=== PATIENT | female | born 1995 | race Caucasian/White ===

== ENCOUNTER 2016-11-14 12:42 | Inpatient (IN) | payer BC, OTHER ==
[~2016-11-14] VITALS: Ht 157.5 cm; Wt 47.6 kg
--- NOTE | 2016-11-15 02:00 | NUR ---
INTAKE NOTE: Patient assessed in intake office at 0200 on 11/11/2016. Patient is ambulatory with steady gate, stable, alert and oriented x4, speech is clear and soft. Patient states that she is here to safety detox from Methamphetamine and Heroin. Patient states that his last use was: Heroin : "smoked 1 gram at 0130 on 11/15/2016". Methamphetamine: "via IV 0.5 gram on 11/15/2016". Patient reports NKA. COWS 5, CIWA 4. Patient presented with anxiety, agitation, nervousness, restlessness, and fatigue. Patient denies SI/HI. Patient denies Seizures Hx. VS: T: 98'4; BP: 115/62; HR: 88; RR: 18; O2 SAT: 98%, pain level:"0/10". Patient instructed on unit protocol of vitals Q4H and COWS/CIWA assessments. Patient verbalized understanding and agreement. Patient also instructed on policy regarding destruction of any controlled substances/prescriptions brought to facility, and handling of all medications. Patient verbalized understanding and agreement. Will complete admission assessment when patient is brought up to unit. Addendum: 11/15/16 at 0507 by BE FRASER RN COWS Dilip
[2016-11-15 02:30] VITALS: BP 115/62
--- NOTE | 2016-11-15 02:30 | NUR ---
ADMISSION NOTE: New admission is a 21 year old female admitted to [facility] at 0235 on 11/15/2016. Patient states that she is here, in the [facility] "first time for Safety Detox from Methamphetamine and Heroin". Pre-assessment completed in intake. No UDS Test provided. VS completed upon admission: T: 98'4; BP: 115/62; HR: 88; RR: 18; O2 SAT: 87%. Pain level "0/10". Patient reports NKA. Patient placed on Full Code, Regular Diet, Fall and Seizures Precautions. Patients denies Seizures Hx r/t withdrawal from substances. COWS 5, CIWA 4. Patient presented with anxiety, agitation, nervousness, restlessness, insomnia and fatigue. Patient denies SI/HI. Patient denies SI/HI. Height: 5'2 in, and weight by standing scale: 105 lbs. Respirations are even and unlabored. Patient denies SOB and chest pain. Patient has PCP, but unable recall PCP name. Patient admitted under the care of Herman Prince MD. Patient reports the following substances use: Heroin smoke: Patient reports "first time used in 2010.1.5 grams every day last five months. Last use was 1 gram on 11/15/16 at 0130". Methamphetamine IV: Patient reports taking ""first time used in 2011. 0.5 grams every day last five months. Last use was 0.5 gram at 0130 on 11/15/16". Patient reports relapsing four months ago, and has been using at this rate for our months". Patient reports smoking 10 cigarettes daily since"2005". Written smoking cessation education provided. Patient Verbalizes understanding. Patient did not brought home medications. Patient reports she used with prescriptions Gabapentin, and Seroquel. Patient reports last used home medications "11/14/2016 at 2300". Patient reports treatment history: "[facility]", [facility], 5 months ago". Patient report being sober for 9 months since 2015 to 2016". Patient reports Past Medical History: Anxiety, Depression, Substance Abuse, Tobacco dependence. Patient is ambulatory with steady gate, stable, AOx4, speech is soft and clear. Respirations unlabored and even. Lungs Sounds are clear bilaterally. Bowel Sounds active in all x4 quadrants. Last Bowel Movement was "11/14/16 ". Skin is intact, warm and dry to touch. UDS test not provided. Encouraged fluids as tolerated. Patient oriented to floor and room, explained how to use call light. Patient verbalized understanding. Safety measures on place. Call light within reach, bed in lowest position and locked, padded rails up bilaterally rails up bilaterally. Will continue to monitor closely. Addendum: 11/15/16 at 0507 by BE FRASER RN COWS 5. Addendum: 11/15/16 at 0644 by BE FRASER RN Patient did not brought home medications. Patient reports she used with prescriptions "Gabapentin 300 mg 1 cap PO TID". Last used home medications "11/14/2016 at 2300". "Seroquel 200 mg PO once a day HS". Addendum: 11/15/16 at 0646 by BE FRASER RN Patient unable to provide urine sample for UDS and Tests.
[2016-11-15] MEDS ORDERED: ACETAMINOPHEN 325 MG TABLET PO PRN (03:30)
[2016-11-15] MEDS ORDERED: MIRALAX 17 GM POWD.PACK PO PRN (03:30)
[2016-11-15] MEDS ORDERED: MAGNESIUM HYDROXIDE 30 ML LIQUID UDC PO PRN (03:30)
[2016-11-15] MEDS ORDERED: diphenhydrAMINE 50 MG CAPSULE PO PRN (03:30)
[2016-11-15] MEDS ORDERED: METHOCARBAMOL 750 MG TABLET PO PRN (03:30)
[2016-11-15] MEDS ORDERED: MAG HYDROX/AL HYDROX/SIMETH 30 ML LIQUID UDC PO PRN (03:30)
[2016-11-15] MEDS ORDERED: ONDANSETRON 4 MG/2 ML VIAL IM PRN (03:30)
[2016-11-15] MEDS ORDERED: LOPERAMIDE HCL 2 MG CAPSULE PO PRN ×2 (03:30)
[2016-11-15] MEDS ORDERED: DICYCLOMINE HCL 20 MG TABLET PO PRN (03:30)
[2016-11-15] MEDS ORDERED: IBUPROFEN 400 MG TABLET PO PRN (03:30)
[2016-11-15] MEDS ORDERED: ONDANSETRON ODT 4 MG TAB.RAPDIS SL PRN (03:30)
[2016-11-15] MEDS ORDERED: BUPRENORPHINE HCL 2 MG TAB.SUBL SL PRN (03:30)
[2016-11-15] MEDS ORDERED: QUET200T PO (03:50)
[2016-11-15] MEDS ORDERED: GABA-534 PO (03:50)
[2016-11-15 04:00] VITALS: BP 106/61
--- NOTE | 2016-11-15 07:02 | NUR ---
END OF SHIFT NOTE: Patient endorsed to day shift nurse in stable condition. Report given. Patient is a 21 year old female admitted to [facility] under the care of Herman Prince MD. at 0235 on 11/15/2016. Patient states that she is here, in the [facility] "first time for Safety Detox from Methamphetamine and Heroin". Patient reports NKA. Patient placed on Full Code, is on Regular Diet, is on Fall and Seizures Precautions. Patients denies Seizures Hx r/t withdrawal from substances. Past Medical History: Anxiety, Depression, Substance Abuse, Tobacco dependence. Patient reports the following substances use: Heroin smoke: Patient reports "first time used in 2010. Last five months - 1.5 grams every day. Last used 1 gram on 11/15/16 at 0130". Methamphetamine IV: Patient reports "first time used in 2011. Last five months - 0.5 grams every day Last used 0.5 gram at 0130 on 11/15/16". Patient report "being sober for 9 months since 2015 to 2016". Patient reports smoking 10 cigarettes daily since"2005". Written smoking cessation education provided. Patient verbalizes understanding. Patient did not brought home medications. Patient reports she used with prescriptions "Gabapentin 300 mg 1 cap PO TID". Last used home medications "11/14/2016 at 2300". "Seroquel 200 mg PO once a day HS". Last used home medications "11/14/2016 at 2300".. Last COWS at 0400 decreased from 5 to 4. Patient presented with anxiety, agitation, nervousness, restlessness, insomnia and fatigue. Patient denies SI/HI. VS at 0400: T: 98'2; BP: 106/61; HR: 62; RR: 18; O2 SAT: 100%. Pain level "0/10". Respirations unlabored and even. Patient denies SOB and chest pain. Skin is intact, warm and dry to touch. Patient unable to provide urine sample for UDS and Tests. Encouraged fluids as tolerated. Patient slept 2 hours, intake 240 ml. All needs met. Safety measures on place. Call light within reach, bed in lowest position and locked, rails up bilaterally.
--- NOTE | 2016-11-15 07:25 | NUR ---
Start Of Shift Report Received. Pt is a 21 year old female admitted on 11/15/16 for Heroin and Meth dependency. Pt is full code regular diet on fall precautions, denies any food or drug allergies. Pt is placed on PRN medication for the day and start a 4 day Subutex taper tomorrow. PMH of anxiety, depression and substance abuse. no seizure history reported. Pts last COWS score was a 4 last night at 0400. Pt encouraged fluids to facilitate detox process. Pt did not receive any PRN medications last night, Pt slept a total of 2 hours. pt is on a 1:1 for safety. All safety measures in place bed in lowest locked position, will continue to monitor and provide care.
[2016-11-15 08:00] VITALS: BP 111/62
[2016-11-15 08:36] LABS: BASOPHILS % (AUTO) 0.4 % (0.0-2.0); EOSINOPHILS # (AUTO) 0.3 K/uL (0.0-0.7); EOSINOPHILS % (AUTO) 4.9 % (0.0-7.0); HEMATOCRIT 39.8 % (37-47); LYMPHOCYTES # (AUTO) 2.3 K/UL (0.8-4.8); LYMPHOCYTES % (AUTO) 44.2 % (20.5-51.5); MEAN CORPUSCULAR HEMOGLOBIN 28.4 UUG (27.0-31.0); MEAN CORPUSCULAR HGB CONC 33 g/dL (32.0-37.0); MEAN CORPUSCULAR VOLUME 86.9 FL (81.0-99.0); MONOCYTES # (AUTO) 0.4 K/UL (0.1-1.30); MONOCYTES % (AUTO) 8.3 % (0.0-11.0); NEUTROPHILS # (AUTO) 2.2 K/UL (1.8-8.9); NEUTROPHILS % (AUTO) 42.2 % (38.5-71.5); PLATELET COUNT (AUTO) 281 K/UL (150-450); RED BLOOD CELL COUNT(AUTO) 4.58 MIL/UL (4.2-5.4); WHITE BLOOD COUNT (AUTO) 5.2 K/UL (4.0-11.2)
[2016-11-15 08:58] LABS: ETHANOL < 3 MG/DL (0-0)
[2016-11-15] MEDS: MULTIVITAMINS,THERAPEUTIC TABLET PO SCH (09:00)
[2016-11-15 09:01] LABS: ALANINE AMINOTRANSFERASE 20 U/L (14-59); ALKALINE PHOSPHATASE 88 U/L (50-136); ASPARTATE AMINOTRANSFERASE 20 U/L (15-37); BILIRUBIN,TOTAL 0.1 mg/dL (0.2-1.0); CARBON DIOXIDE 27 mmol/L (21-32); CHLORIDE 106 mmol/L (98-107); CREATININE 0.8 mg/dL (0.6-1.3); GLUCOSE 85 mg/dL (74-106); MAGNESIUM 2.1 mg/dL (1.8-2.4); POTASSIUM 3.9 mmol/L (3.5-5.1); TOTAL PROTEIN, SERUM 7.3 g/dL (6.4-8.2); UREA NITROGEN, BLOOD 16 mg/dL (7-18)
[2016-11-15 09:11] LABS: THYROID STIMULATING HORMONE 2.135 mIU/mL (0.358-3.740)
[2016-11-15 10:22] LABS: *URINE HCG, QUAL NEGATIVE (NEGATIVE)
[2016-11-15 10:39] LABS: *AMPHETAMINE, URINE POSITIVE (NEGATIVE); *BARBITURATE, URINE POSITIVE (NEGATIVE); *CANNABINOID, URINE NEGATIVE (NEGATIVE); *COCCAINE, URINE NEGATIVE (NEGATIVE); *OPIATE, URINE POSITIVE (NEGATIVE); *PHENCYCLIDINE SCREEN,URINE NEGATIVE (NEGATIVE)
[2016-11-15 12:00] VITALS: BP 114/64
[2016-11-15] MEDS: GABAPENTIN 300 MG CAPSULE PO SCH ×2 (15:16→21:00)
[2016-11-15] MEDS: HYDROXYZINE PAMOATE 25 MG CAPSULE PO PRN (15:16)
[2016-11-15] MEDS: BUPRENORPHINE HCL 2 MG TAB.SUBL SL PRN (15:17)
--- NOTE | 2016-11-15 15:17 | NUR ---
PRN MEDICATION Pt c/o Anxiety presented with agitation sweats tremors and restlessness COWS score of 13, requested something for relief, non-pharmacological techniques interventions provided x3 and were not effective. PRN Subutex SL 4mg and Vistaril 50mg, administered PO, educated pt about s/e of medication and when to contact nurse. all needs met, all safety measures in place, will continue to monitor.
[2016-11-15 16:00] VITALS: BP 127/73
--- NOTE | 2016-11-15 16:17 | NUR ---
PRN REASSESSMENT Medication effective Pts COWS dropped to 9 and she reported a decrease in symptoms stating she feels much better. all needs met will continue to monitor.
--- NOTE | 2016-11-15 19:30 | NUR ---
START OF SHIFT Pt is a 21 year old female admitted for Heroin and Meth dependency. Pt is full code ,regular diet on fall precautions, NKA. Pt is going to start her Subutex taper tomorrow. Patient encouraged adequate PO fluid intake as tolerated. Last COWS score was a 9 @1600. Pt received PRN Subutex 4 mg due to COWS score of 13 earlier today. Detox medication effective at reducing withdrawal symptoms , patient denies SI/HI. Safety measures in place. Call light kept within reach. Will continue to monitor patient.
--- NOTE | 2016-11-15 19:30 | NUR ---
End Of Shift Pt is a 21 year old female admitted on 11/15/16 for Heroin and Meth dependency. Pt is full code regular diet on fall precautions, denies any food or drug allergies. pt is going to start her Subutex taper tomorrow. Pt has PRN medications in case of withdrawal symptoms. Pt remains compliant with the treatment plan. Patient encouraged adequate PO fluid intake as tolerated. Upon assessment patient presented with mild anxiety, and barely sweating with his last COWS score was a 9 @1600. Pt received PRN Subutex 4 mg due to COWS score of 13 earlier today. Detox medication effective at reducing withdrawal symptoms. Patient encouraged to attend group therapies/sessions to learn new coping skills to recent relapse, patient denies SI/HI. Pt ate all of the meals with total fluid intake 651 ml with 2 void and no bowel movement. Safety measures in place. Call light kept within reach. Patient endorsed to night worker nurse, all pertinent information discussed.
[2016-11-15 20:00] VITALS: BP 91/50
[2016-11-16] VITALS: BP 93/52
[2016-11-16] MEDS: BUPRENORPHINE HCL 2 MG TAB.SUBL SL PRN (00:08)
--- NOTE | 2016-11-16 00:09 | NUR ---
PRN MEDS PRN SUBUTEX GIVEN ORDERED FOR W/D SYMPTOMS/COWS SORE = 13.PRN BENADRYL GIVEN ORDERED FOR C/O INSOMNIA PER PT REQUEST.WILL MONITOR.
--- NOTE | 2016-11-16 01:10 | NUR ---
PRN MEDS ARE EFFECTIVE.PT IS SOUND ASLEEP.BREATHING IS EVEN AND NON LABORED.NO S/S OF DISTRESS NOTED,WILL BE MONITORED FOR SAFETY.
--- NOTE | 2016-11-16 04:00 | NUR ---
PT REFUSED V/S.COWS DEFERRED D/T PT BEING IN DEEP SLEEP.BREATHING IS EVEN AND NON LABORED,NO S/S OF DISTRESS NOTED.
--- NOTE | 2016-11-16 04:00 | NUR ---
PT REFUSED V/S. Addendum: 11/16/16 at 0617 by CLIFF HERNANDEZ RN Amended: Links added.
--- NOTE | 2016-11-16 07:06 | NUR ---
END OF SHIFT Pt is a 21 year old female admitted for Heroin and Meth dependency. Pt is full code ,regular diet on fall precautions, NKA. Pt is going to start her Subutex taper today. Patient encouraged adequate PO fluid intake as tolerated.Skin is intact,breathing is even and non labored, Last COWS score was a 6 @ midnight. PRN Subutex and Benadryly were given last night with good effect;pt slept 8 hrs,fluid intake was1,000 mls;voided x 2 . [address]. Call light kept within reach. Will continue to monitor patient.
--- NOTE | 2016-11-16 07:40 | NUR ---
START OF SHIFT NOTE Report Received. Pt is a 21 year old female admitted for Heroin and Meth dependence. Pt is full code regular diet on fall precautions, denies any food or drug allergies. Pt is placed on 4 day Subutex taper . Pt reported PMH of anxiety, depression, no seizure history. Pt received PRN Subutex/Benadryl last night, Pt slept a total of 8 hours, Last COWS-6. Currently pt is asleep in bed with no signs of discomfort/distress noted responsive to verbal and tactile stimuli. Breathing normal no SOB noted. Safety measures in place. Will continue to monitor.
[2016-11-16 08:00] VITALS: BP 105/63
[2016-11-16] MEDS ORDERED: TUBERCULIN,PURIF.PROT.DERIV. 5 TU/0.1 ML TEST ID ONE (09:00)
[2016-11-16] MEDS ORDERED: 4 DAY TAPER BUPRENORPHINE -SERENITY PROTOCOL SL PRN (09:00)
[2016-11-16] MEDS: MULTIVITAMINS,THERAPEUTIC TABLET PO SCH (09:21)
[2016-11-16] MEDS: GABAPENTIN 300 MG CAPSULE PO SCH ×3 (09:21→21:19)
[2016-11-16] MEDS: BUPRENORPHINE HCL 2 MG TAB.SUBL SL SCH ×3 (09:22→21:20)
[2016-11-16 12:00] VITALS: BP_SYST 108; BP_SYST 112; BP_DIAS 64; BP_DIAS 72
[2016-11-16 14:07] LABS: HEPATITIS B SURFACE AG Negative (Negative)
[2016-11-16 16:00] VITALS: BP 115/69
--- NOTE | 2016-11-16 19:14 | NUR ---
END OF SHIFT NOTE Gave report to night nurse,21 year old female admitted on 11/15/16 for Heroin and Meth dependency. Pt is full code regular diet on fall precautions, denies any food or drug allergies. Pt is cont with Subutex taper tolerating well. Patient encouraged adequate PO fluid intake as tolerated. During shift pt did not receive any PRN, Last COWS-6. Vital signs remained stable. Pt remained compliant with care and medications. During shift pt was seen by MD Portillo, and Psychiatrist. Safety measures in place, Call light within reach. Pt endorsed to night nurse in stable condition.
[2016-11-16 20:00] VITALS: BP 103/60
--- NOTE | 2016-11-16 20:00 | NUR ---
START OF SHIFT NOTE RECEIVED REPORT FROM DAY SHIFT NURSE. PATIENT IS A 21 YEAR OLD FEMALE, ADMITTED FOR OPIOID DEPENDENCE. PATIENT IS ON 4 DAY SUBUTEX TAPER, STARTED TODAY. SKIN INTACT. PATIENT DID NOT REQUIRE ANY PRN MEDICATION . LAST COWS 6. ON FALL PRECAUTION. PATIENT ALERT AND RESPIRATION EVEN AND UNLABORED. PATIENT STATES SHE'S ANXIOUS, SWEATING, CHILLS, RUNNY NOSE, STOMACH CRAMPS , NO N/V. DENIES ANY PAIN AT THIS TIME. SAFETY MEASURES IN PLACE. CALL LIGHT IN REACH. WILL CONTINUE TO MONITOR.
[2016-11-16] MEDS: QUETIAPINE FUMARATE 200 MG TABLET PO SCH (21:20)
[2016-11-17] VITALS: BP 89/57
[2016-11-17 04:00] VITALS: BP 86/53
--- NOTE | 2016-11-17 07:17 | NUR ---
END OF SHIFT NOTE MONITORED PATIENT THROUGHOUT SHIFT. PATIENT IS ON 4 DAY SUBUTEX TAPER, TOLERATED WELL. NO ADVERSE REACTION. PATIENT IN ROOM MOST OF THE SHIFT. PATIENT NOTED LOW BLOOD PRESSURE. DENIES ANY DIZZINESS OR LIGHT HEADEDNESS. PER PATIENT "I'M OKAY" WHEN ASKED. ENCOURAGE FLUIDS. ENDORSED TO NEXT SHIFT. PATIENT REMAIN ALERT AND RESPIRATION EVEN AND UNLABORED. PATIENT DID NOT REQUIRE ANY PRN MEDICATION . SAFETY MEASURES IN PLACE. CALL LIGHT IN REACH. WILL CONTINUE TO MONITOR. SLEPT 10 HOURS . FLUID INTAKE 547 ML. VOIDED X 1 . NO BM. LAST COWS 2.
[2016-11-17 08:00] VITALS: BP 90/55
--- NOTE | 2016-11-17 08:08 | NUR ---
START OF SHIFT NOTE Report Received. Pt is a 21 year old female admitted for Heroin and Meth dependence. Pt is full code regular diet on fall precautions, denies any food or drug allergies. Pt is placed on 4 day Subutex taper . Pt reported PMH of anxiety, depression, no seizure history. Pt received did not receive any PRN last night, Pt slept a total of 10 hours, Last COWS-2. Currently pt is asleep in bed with no signs of discomfort/distress noted responsive to verbal and tactile stimuli. Breathing normal no SOB noted. Safety measures in place. Will continue to monitor.
[2016-11-17] MEDS: GABAPENTIN 300 MG CAPSULE PO SCH ×3 (09:00→21:57)
[2016-11-17] MEDS ORDERED: BUPRENORPHINE HCL 2 MG TAB.SUBL SL SCH (09:00)
[2016-11-17] MEDS: MULTIVITAMINS,THERAPEUTIC TABLET PO SCH (09:00)
--- NOTE | 2016-11-17 09:00 | NUR ---
REFUSED MEDS Pt refused her all scheduled morning Meds, offered x3 risk and benefits explained. Pt still refused. MD notified. COWS score noted-6. All safety measures in place, call light within reach. Will cont to monitor.
[2016-11-17 12:00] VITALS: BP 104/62
[2016-11-17] MEDS: BUPRENORPHINE HCL 2 MG TAB.SUBL SL SCH ×2 (14:41→21:57)
[2016-11-17 16:00] VITALS: BP 109/72
--- NOTE | 2016-11-17 19:15 | NUR ---
END OF SHIFT NOTE Pt is cont with Subutex taper tolerating well. Pt refused her scheduled morning medications, MD notified. Patient encouraged adequate PO fluid intake as tolerated. During shift pt did not receive any PRN, Last COWS-4. Vital signs remained stable. Pt remained compliant with care and medications. During shift pt was seen by MD Portillo, and Psychiatrist. Safety measures in place, Call light within reach. Pt endorsed to night nurse in stable condition.
[2016-11-17 20:00] VITALS: BP 115/72
--- NOTE | 2016-11-17 20:00 | NUR ---
START OF SHIFT NOTE RECEIVED REPORT FROM DAY SHIFT NURSE. PATIENT CONTINUE ON SUBUTEX TAPER, TOLERATED WELL. NO ADVERSE REACTION FOR OPIOID/METH DEPENDENCE. UPON ADMISSION , PATIENT REPORTED USING FOR 5 MONTHS. PATIENT'S DRUG OF CHOICE ARE HEROIN (SMOKE ) 1.5 GRAM AND METH IV 0.5 GRAM. PATIENT REFUSED ALL AM SCHEDULED MEDS. PATIENT DID NOT REQUIRE ANY PRN MEDICATION . LAST COWS 4. PATIENT STABLE . SKIN INTACT. BEGINNING OF SHIFT, PATIENT ALERT AND ORIENTED X 4. RESPIRATION EVEN AND UNLABORED. PATIENT REPORTS ANXIETY, SWEATING, STUFFY NOSE, ABDOMINAL CRAMPS, NO N/V. DENIES ANY PAIN . ON FALL PRECAUTION. SAFETY MEASURES IN PLACE. CALL LIGHT IN REACH. WILL CONTINUE TO MONITOR .
[2016-11-17] MEDS: QUETIAPINE FUMARATE 200 MG TABLET PO SCH (21:57)
[2016-11-18] VITALS: BP 106/60
--- NOTE | 2016-11-18 07:09 | NUR ---
END OF SHIFT NOTE MONITORED PATIENT THROUGHOUT SHIFT. PATIENT CONTINUE ON SUBUTEX TAPER, TOLERATED WELL. NO ADVERSE REACTION FOR OPIOID/METH DEPENDENCE. UPON ADMISSION , PATIENT REPORTED USING FOR 5MONTHS. PATIENT'S DRUG OF CHOICE ARE HEROIN (SMOKE ) 1.5 GRAM AND METH IV 0.5 GRAM. PATIENT COMPLIANT WITH MEDICATIONS AND TREATMENT PLAN. PATIENT NOTED UP AND ABOUT DURING SHIFT. PATIENT DID NOT REQUIRE ANY PRN MEDICATION . PATIENT REMAIN STABLE . SKIN INTACT. PATIENT REMAIN ALERT AND ORIENTED X 4. RESPIRATION EVEN AND UNLABORED. PATIENT REMAIN FREE OF INJURY. ON FALL PRECAUTION. SAFETY MEASURES IN PLACE. CALL LIGHT IN REACH. WILL CONTINUE TO MONITOR .SLEPT 6 HOURS. FLUID INTAKE 1,751 ML. VOIDED X 2 . NO BM. LAST COWS 3 .
--- NOTE | 2016-11-18 07:47 | NUR ---
START OF SHIFT NOTE Report Received. Pt is a 21 year old female admitted for Heroin and Meth dependence. Pt cont with 4 day Subutex taper . Pt reported PMH of anxiety, depression, no seizure history. Pt received did not receive any PRN last night, Pt slept a total of 6 hours, Last COWS-3. Upon assessment pt is alert & oriented x4. No shortness of breath noted. Respiration even & unlabored. Abdomen soft & non-distended. No nausea/vomiting noted. Patient denies pain/discomfort. Pt educated with plan of care and medication regimen with good verbal understanding. Safety measures in place, Call light within reach. Will cont to monitor.
[2016-11-18 08:00] VITALS: BP 103/65
[2016-11-18] MEDS: MULTIVITAMINS,THERAPEUTIC TABLET PO SCH (09:09)
[2016-11-18] MEDS: BUPRENORPHINE HCL 2 MG TAB.SUBL SL SCH ×3 (09:09→21:00)
[2016-11-18] MEDS: GABAPENTIN 300 MG CAPSULE PO SCH ×3 (09:09→21:10)
[2016-11-18 12:00] VITALS: BP 138/66
[2016-11-18] MEDS: CLONIDINE HCL 0.1 MG TABLET PO PRN ×2 (12:45→21:10)
--- NOTE | 2016-11-18 12:45 | NUR ---
PRN CLONIDINE Pt c/o of anxiety, chills,sweats. PRN Clonidine administered as ordered. Will cont to monitor and reassess.
--- NOTE | 2016-11-18 13:45 | NUR ---
REASSESSMENT Pt reported medication effective. Anxiety and sweats, chills subside.
--- NOTE | 2016-11-18 15:00 | NUR ---
REFUSED SUBUTEX Pt refused her scheduled Subutex 2mg SL, offered x3 risk and benefits explained. notified. Will cont to monitor.
[2016-11-18 16:00] VITALS: BP 99/55
--- NOTE | 2016-11-18 19:18 | NUR ---
END OF SHIFT NOTE Gave report to night nurse, 21 year old female admitted for Heroin and Meth dependency. Pt is full code regular diet on fall precautions, denies any food or drug allergies. Pt is cont with Subutex taper tolerating well. Patient encouraged adequate PO fluid intake as tolerated. During shift pt received PRN Clonidine noted to be effective, Last COWS-4. Pt refused her scheduled Subutex at 1500 MD notified. Vital signs remained stable. Pt remained compliant with care and medications. During shift pt was seen by MD Portillo, and Psychiatrist. Safety measures in place, Call light within reach. Pt endorsed to night nurse in stable condition.
[2016-11-18 20:00] VITALS: BP 128/68
--- NOTE | 2016-11-18 20:00 | NUR ---
START OF SHIFT NOTE PATIENT ALERT AND ORIENTED X 4. RESPIRATION EVEN AND UNLABORED. PATIENT STATES SHES ANXIOUS BUT ALRIGHT. NO N/V. DENIES ANY PAIN. RECEIVED REPORT FROM DAY SHIFT NURSE. PATIENT IS A 21 YEAR OLD FEMALE, ADMITTED FOR OPIOID/METH DEPENDENCE, TOLERATED WELL, NO ADVERSE REACTION . PATIENT IS ON 3RD DAY OF HER SUBUTEX TAPER. PER DAY SHIFT NURSE, PATIENT REFUSED HER 1500 SUBUTEX. PATIENT WAS GIVEN PRN CLONIDINE. LAST COWS 4. PATIENT COMPLIANT WITH MEDICATION AND TREATMENT PLAN. ON FALL PRECAUTION. SAFETY MEASURES IN PLACE. CALL LIGHT IN REACH. WILL CONTINUE TO MONITOR.
--- NOTE | 2016-11-18 21:00 | NUR ---
SUBUTEX REFUSED PATIENT REFUSED SUBUTEX, PER PATIENT SHE'S LEAVING TOMORROW AND SHE DOESN'T NEED IT . EXPLAINED RISKS/BENEFITS , PATIENT REFUSED SUBUTEX DESPITE ANXIETY AND ASKS FOR CLONIDINE AND VISTARIL . WILL CONTINUE TO MONITOR.
[2016-11-18] MEDS: QUETIAPINE FUMARATE 200 MG TABLET PO SCH (21:10)
[2016-11-18] MEDS: HYDROXYZINE PAMOATE 25 MG CAPSULE PO PRN (21:10)
--- NOTE | 2016-11-18 21:10 | NUR ---
PRN VISTARIL AND CLONIDINE ADMINISTRATION PATIENT C/O ANXIETY. VISTARIL AND CLONIDINE GIVEN. WILL MONITOR FOR EFFECTIVENESS
--- NOTE | 2016-11-18 22:10 | NUR ---
PRN VISTARIL/CLONIDINE RE-ASSESSMENT PATIENT STATES VISTARIL AND CLONIDINE HELPFUL. ANXIETY SUBSIDED. WILL CONTINUE TO MONITOR.
--- NOTE | 2016-11-19 | NUR ---
COWS/VS PATIENT ASLEEP. COWS UNABLE TO ASSESS. RESPIRATION EVEN AND UNLABORED. RR 14. NO S/S OF DISTRESS. SAFETY MEASURES IN PLACE. CALL LIGHT IN REACH. WILL CONTINUE TO MONITOR.
--- NOTE | 2016-11-19 07:13 | NUR ---
END OF SHIFT NOTE PATIENT REMAIN ALERT AND ORIENTED X 4. RESPIRATION EVEN AND UNLABORED. PATIENT STATES SHES ANXIOUS BUT ALRIGHT, NO N/V, DENIES ANY PAIN BEGINNING OF SHIFT. PATIENT IS ON SUBUTEX TAPER FOR OPIOID DEPENDENCE. PATIENT REFUSED HER 2100 SUBUTEX. PER PATIENT SHES DISCHARGING TODAY AND DOES NOT NEED SUBUTEX BUT ASKS FOR CLONIDINE AND VISTARIL. EXPLAINED RISKS/BENEFITS. EDUCATE ON MEDICATION. PATIENT WAS GIVEN PRN CLONIDINE AND VISTARIL . ON FALL PRECAUTION. PATIENT REMAIN FREE OF INJURY. SAFETY MEASURES IN PLACE. CALL LIGHT IN REACH. WILL CONTINUE TO MONITOR. SLEPT 7 HOURS. FLUID INTAKE 1,346 ML. VOIDED X 2. NO BM. LAST COWS 2.
--- NOTE | 2016-11-19 07:56 | NUR ---
START OF SHIFT NOTE Received report from night nurse, 21 year old female admitted for Heroin and Meth dependence. Pt cont with 4 day Subutex taper. Pt reported PMH of anxiety, depression, no seizure history. Pt received PRN Vistaril clonidine, last night, Pt slept a total of 6 hours, Last COWS-2. Pt refused her Subutex per night nurse. Upon assessment pt is alert & oriented x4. No shortness of breath noted. Respiration even & unlabored. Abdomen soft & non-distended. No nausea/vomiting noted. Patient denies pain/discomfort. Pt educated with plan of care and medication regimen with good verbal understanding. Safety measures in place, Call light within reach. Will cont to monitor.
[2016-11-19 08:00] VITALS: BP 96/55
[2016-11-19] MEDS ORDERED: BUPRENORPHINE HCL 2 MG TAB.SUBL SL SCH (09:00)
[2016-11-19] MEDS: GABAPENTIN 300 MG CAPSULE PO SCH ×2 (09:03→14:28)
[2016-11-19] MEDS: MULTIVITAMINS,THERAPEUTIC TABLET PO SCH (09:03)
[2016-11-19 12:00] VITALS: BP 98/58
[2016-11-19] MEDS ORDERED: HYDR-3895 PO (12:12)
[2016-11-19] MEDS ORDERED: CLON0.1T14 PO (12:12)
[2016-11-19] MEDS ORDERED: GABA-534 PO (12:12)
--- NOTE | 2016-11-19 14:52 | NUR ---
DISCHARGE NOTE Pt was admitted for heroin and meth dependence. Pt is in stable condition, Vital signs WNL. Pt is alert oriented x4. Skin intact, Pt denies any SI/HI ideations. All discharge paperwork completed dated and signed. Pt educated about discharge instructions,what to do after discharge, when to contact as well as s/s reportable to MD. Pt verbalized understanding. Pt's last COWS-0. Pt discharged from [facility] on 11/19/16 at 1452. Pt left the building with all of her belongings and prescriptions, Pt did not bring any medications with her to the unit. MD has been contracted and notified of Pt;s discharge.
== END 2016-11-19 14:52 | disposition other institution (70) | DRG 895 ==
LOC: SRC 11-15 01:35
PROVIDERS: ADMIT Internal Medicine; ATTEND Internal Medicine
PROC: HZ2ZZZZ Detoxification Services for Substance Abuse Treatment (ICD-10-PCS; principal; 2016-11-15)
PROC: HZ41ZZZ Group Counseling for Substance Abuse Treatment, Behavioral (ICD-10-PCS; 2016-11-16)
PROC: HZ31ZZZ Individual Counseling for Substance Abuse Treatment, Behavioral (ICD-10-PCS; 2016-11-16)
DX: F11.23 Opioid dependence with withdrawal (principal); F17.210 Nicotine dependence, cigarettes, uncomplicated; F15.10 Other stimulant abuse, uncomplicated; Z59.0 Homelessness; G47.00 Insomnia, unspecified
CPT/HCPCS: 36415; 70030-TC; 80307; 80324; 80345; 80361; 83735; 84443; 84703; 85025; 86580; 86705; 86803; 87340; 87806; A4663; G0480; Q0163

== ENCOUNTER 2016-12-19 14:57 | Inpatient (IN) | payer BC, OTHER ==
[~2016-12-19] VITALS: Ht 157.5 cm; Wt 47.6 kg
[~2016-12-19 14:57] MED LIST: CLON0.1T14 PO; GABA-534 PO; HYDR-3895 PO; QUET200T PO
[2016-12-19] MEDS ORDERED: IBUPROFEN 600 MG TABLET PO PRN (19:30)
[2016-12-19] MEDS ORDERED: MIRALAX 17 GM POWD.PACK PO PRN (19:30)
[2016-12-19] MEDS ORDERED: DICYCLOMINE HCL 20 MG TABLET PO PRN (19:30)
[2016-12-19] MEDS ORDERED: MAG HYDROX/AL HYDROX/SIMETH 30 ML LIQUID UDC PO PRN (19:30)
[2016-12-19] MEDS ORDERED: ACETAMINOPHEN 325 MG TABLET PO PRN (19:30)
[2016-12-19] MEDS ORDERED: DIAZEPAM 10 MG TABLET PO PRN ×2 (19:30)
[2016-12-19] MEDS ORDERED: CLONIDINE HCL 0.1 MG TABLET PO PRN (19:30)
[2016-12-19] MEDS ORDERED: LORAZEPAM 2 MG/1 ML VIAL IM PRN (19:30)
[2016-12-19] MEDS ORDERED: LOPERAMIDE HCL 2 MG CAPSULE PO PRN ×2 (19:30)
[2016-12-19] MEDS ORDERED: METHOCARBAMOL 750 MG TABLET PO PRN (19:30)
[2016-12-19] MEDS ORDERED: ONDANSETRON ODT 4 MG TAB.RAPDIS SL PRN (19:30)
[2016-12-19] MEDS ORDERED: diphenhydrAMINE 50 MG CAPSULE PO PRN (19:30)
[2016-12-19] MEDS ORDERED: DIAZEPAM 5 MG TABLET PO PRN (19:30)
[2016-12-19] MEDS ORDERED: ONDANSETRON 4 MG/2 ML VIAL IM PRN (19:30)
[2016-12-19] MEDS ORDERED: BUPRENORPHINE HCL 2 MG TAB.SUBL SL PRN (19:30)
--- NOTE | 2016-12-19 20:15 | NUR ---
INTAKE NOTE: Patient assessed in intake office at 20:15 on 12/19/2016. Patient is ambulatory with steady gate, stable, alert and oriented x4, speech is clear and soft. Patient states that she is here to safety detox from Methamphetamine, Xanax and Heroin: T: 98'2; BP: 108/55; HR: 85; RR: 16; O2 SAT: 97%. Pain level "0/10". Patient reports NKA. Patient placed on Full Code, Regular Diet, Fall and Seizures Precautions. Patients denies Seizures Hx r/t withdrawal from substances. COWS=3, CIWA=2. Patient presented with anxiety, agitation, nervousness. Patient denies SI/HI at this time. Patient denies Seizures Hx. Patient instructed on unit protocol of vitals Q4H and COWS/CIWA assessments. Patient verbalized understanding and agreement. Patient also instructed on policy regarding destruction of any controlled substances/prescriptions brought to facility, and handling of all medications. Patient verbalized understanding and agreement. Will complete admission assessment when patient is brought up to unit.
[2016-12-19] MEDS ORDERED: GABA-534 PO (20:34)
[2016-12-19 20:40] LABS: *URINE HCG, QUAL NEGATIVE (NEGATIVE)
[2016-12-19 20:46] LABS: BASOPHILS % (AUTO) 0.6 % (0.0-2.0); EOSINOPHILS # (AUTO) 0.3 K/uL (0.0-0.7); EOSINOPHILS % (AUTO) 4.8 % (0.0-7.0); HEMATOCRIT 40.2 % (37-47); HEMOGLOBIN 13.3 G/DL (12.0-16.0); LYMPHOCYTES # (AUTO) 2.4 K/UL (0.8-4.8); LYMPHOCYTES % (AUTO) 44.6 % (20.5-51.5); MEAN CORPUSCULAR HEMOGLOBIN 28.8 UUG (27.0-31.0); MEAN CORPUSCULAR HGB CONC 33 g/dL (32.0-37.0); MEAN CORPUSCULAR VOLUME 87.2 FL (81.0-99.0); MONOCYTES # (AUTO) 0.4 K/UL (0.1-1.30); NEUTROPHILS # (AUTO) 2.3 K/UL (1.8-8.9); PLATELET COUNT (AUTO) 322 K/UL (150-450); RED BLOOD CELL COUNT(AUTO) 4.61 MIL/UL (4.2-5.4); WHITE BLOOD COUNT (AUTO) 5.4 K/UL (4.0-11.2)
[2016-12-19 20:48] LABS: *AMPHETAMINE, URINE POSITIVE (NEGATIVE); *BARBITURATE, URINE NEGATIVE (NEGATIVE); *CANNABINOID, URINE NEGATIVE (NEGATIVE); *COCCAINE, URINE NEGATIVE (NEGATIVE); *OPIATE, URINE POSITIVE (NEGATIVE); *PHENCYCLIDINE SCREEN,URINE NEGATIVE (NEGATIVE)
[2016-12-19 20:54] LABS: ALANINE AMINOTRANSFERASE 22 U/L (14-59); ALKALINE PHOSPHATASE 98 U/L (50-136); ASPARTATE AMINOTRANSFERASE 20 U/L (15-37); BILIRUBIN,TOTAL 0.4 mg/dL (0.2-1.0); CARBON DIOXIDE 32 mmol/L (21-32); CHLORIDE 103 mmol/L (98-107); GLUCOSE 83 mg/dL (74-106); MAGNESIUM 2.1 mg/dL (1.8-2.4); POTASSIUM 3.7 mmol/L (3.5-5.1); TOTAL PROTEIN, SERUM 8.5 g/dL (6.4-8.2); UREA NITROGEN, BLOOD 19 mg/dL (7-18)
[2016-12-19 20:56] LABS: ETHANOL < 3 MG/DL (0-0)
--- NOTE | 2016-12-19 22:00 | NUR ---
ADMISSION NOTE : New admission is a 21 year old female admitted to [facility] at 20:50 on 12/19/2016. Patient states that she is here, in the [facility] "second time for Safety Detox from Methamphetamine, Xanax and Heroin". Pre-assessment completed in intake. UDS and tests provided. VS completed upon admission: T: 98'2; BP: 108/55; HR: 85; RR: 16; O2 SAT: 97%. Pain level "0/10". Patient reports NKA. Patient placed on Full Code, Regular Diet, Fall and Seizures Precautions. Patients denies Seizures Hx r/t withdrawal from substances. Patient brought home medications. Patient reports she used with prescriptions "Gabapentin 300 mg 1 cap PO TID. "Seroquel 200 mg PO once a day HS". COWS 3, CIWA 2. Patient presented with anxiety, nervousness, insomnia . Patient denies SI/HI at this moment, confirms SI in the past. Height: 5'2 in, and weight by standing scale: 105 lbs. Respirations are even and unlabored. Patient denies SOB and chest pain. Patient is ambulatory with steady gate, stable, AOx4, speech is soft and clear. Respirations unlabored and even. Lungs Sounds are clear bilaterally. Bowel Sounds active in all x4 quadrants. Last Bowel Movement was "12/18/16 ". Skin is intact, warm and dry to touch. Patient denies to have PCP at this time. Patient admitted under the care of Herman Prince MD. Encouraged fluids as tolerated. Patient oriented to floor and room, explained how to use call light. Patient verbalized understanding. Safety measures on place. Call light within reach, bed in lowest position and locked, padded rails up bilaterally rails up bilaterally. Will continue to monitor closely. SUBSTANCE ABUSE HISTORY : Heroin IV/ smoke: 1.5gm QD last 30days, last use on 12/19/2016. Uses since 2009 Methamphetamine IV/smokes : 1gm QD last 30 days, last use on 12/19/2016, uses since 2011 Xanax 2mg QD PO last 30 days, last use on 12/19/2016, uses since 2014 Patient reports smoking 10 cigarettes daily since"2005". Written smoking cessation education provided. Patient Verbalizes understanding. PAST MEDICAL HISTORY : Anxiety, Depression, Substance Abuse, Tobacco dependence, HTN [place] HISTORY : X6 Detox. X10 Rehab. "MAR[facility]", [facility], 6 months ago". Patient report being sober for 9 months since 2015 to 2016". FAMILY HISTORY : Father : Bipolar, ETOH abuse.
--- NOTE | 2016-12-19 22:01 | NUR ---
PRN BENADRYL, ROBAXIN, VISTARIL Pt. complains of sleeplessness, increased level of anxiety, constipation. PRN BENADRYL, ROBAXIN, VISTARIL given as ordered. Safety measures in place : bed on lowest position with side rails x2 up for safety, call light within reach. Will continue to monitor closely and offer help.
[2016-12-19] MEDS: HYDROXYZINE PAMOATE 25 MG CAPSULE PO PRN (22:02)
[2016-12-19] MEDS: GABAPENTIN 300 MG CAPSULE PO SCH (22:02)
--- NOTE | 2016-12-19 23:00 | NUR ---
REASSESSMENT MIAN HARLEY VISTARIL Pt. is sleeping, RR=16, unlabored and even. Safety measures in place : bed on lowest position with side rails x2 up for safety, call light within reach. Will continue to monitor closely and offer help.
[2016-12-20] VITALS (7 sets, daily range): BP systolic 89–130; BP diastolic 45–73
--- NOTE | 2016-12-20 06:35 | NUR ---
END OF SHIFT NOTE : Pt. is a 21 year old female admitted to [facility] at 20:50 on 12/19/2016. Patient reports NKA. Patient placed on Full Code, Regular Diet, Fall and Seizures Precautions. Patients denies Seizures Hx r/t withdrawal from substances. Patient presented with anxiety, nervousness. Patient denies SI/HI at this moment, confirms SI in the past. Patient denies SOB and chest pain. Patient is ambulatory with steady gate, stable, AOx4, speech is soft and clear. Pt remains compliant with the treatment plan. PRN BENADRYL, ROBAXIN, VISTARIL given during my shift. V/S remain WNL. RR=16, even and unlabored, lungs clear upon auscultation, abdomen soft and non- distended. Pt denies nausea, vomiting and diarrhea. LAST CIWA=2 ,COWS=3 at 0400 , INTAKE=1,710 ml, voided x2 , slept 7 hours. Safety measures in place : bed on lowest position with side rails x2 up for safety, call light within reach. Will continue to monitor closely and offer help.
--- NOTE | 2016-12-20 07:15 | NUR ---
Start of shift note SBAR report rcv'd. Pt was admitted for opiate and benzo dependence. Pt has a PMhx of HTN, anxiety and depression. Pt denies any allergies, is a full code and on a regular diet. Pt denies any history of seizures. Pt is on PRN medications to manage her s/s of withdrawal at this time. Pt is currently resting in bed. Fall precautions in place. Bed is locked in a low position, call light within reach, side rails up x 2, all needs addressed a this time. Will continue to monitor pt.
--- NOTE | 2016-12-20 08:00 | NUR ---
COWS/CIWA deferred Pt is sleeping, COWS/CIWA deferred.
[2016-12-20] MEDS: MULTIVITAMINS,THERAPEUTIC TABLET PO SCH (09:00)
[2016-12-20] MEDS ORDERED: BUPRENORPHINE HCL 2 MG TAB.SUBL SL SCH (09:00)
[2016-12-20] MEDS ORDERED: DIAZEPAM 10 MG TABLET PO SCH (09:00)
[2016-12-20] MEDS: GABAPENTIN 300 MG CAPSULE PO SCH ×3 (09:00→21:44)
[2016-12-20] MEDS ORDERED: TUBERCULIN,PURIF.PROT.DERIV. 5 TU/0.1 ML TEST ID ONE (09:00)
--- NOTE | 2016-12-20 09:00 | NUR ---
Medications held Pt is sleeping, pt able to be woken up, states "I don't feel well", however pt is unable to stay awake long enough to answer full COWS/CIWA questions. Dr Cody is aware.
[2016-12-20] MEDS: BUPRENORPHINE HCL 2 MG TAB.SUBL SL SCH ×3 (13:16→21:44)
[2016-12-20] MEDS: DIAZEPAM 10 MG TABLET PO SCH ×3 (13:16→21:44)
--- NOTE | 2016-12-20 14:17 | NUR ---
medication held Pt continues to be sedated, gabepentin held. Will continue to monitor pt.
--- NOTE | 2016-12-20 16:00 | NUR ---
COWS/CIWA deferred Pt COWS and CIWA deferred d/t pt sleeping. Dr Cody aware, states pt is suffering from methamphetamine withdrawal. Will continue to closely monitor pt.
--- NOTE | 2016-12-20 19:14 | NUR ---
End of shift note Pt was admitted for opiate and benzo dependence with methamphetamine abuse. Pt has a PMhx of HTN, anxiety and depression. Pt denies any allergies, is a full code and on a regular diet. Pt denies any history of seizures. Pt started her subutex and valium taper during the shift. Pt slept through most of the shift. AM medications were held, 1500 gabapentin was held also d/t sedation. Pt 1700 medications were given late per pt request. Pt had a COWS and CIWA of 13 and 13 at 1815 when medications were given. Pt refused breakfast and lunch and ate 100% of dinner, drank 500ml of fluids and had one void. PO fluids were encouraged. SBAR report given to oncoming nurse. Pt is currently resting in bed and has no complaints at this time, all needs addressed.
--- NOTE | 2016-12-20 19:15 | NUR ---
START OF SHIFT NOTE : Pt. is a 21 year old female admitted to [facility] at 20:50 on 12/19/2016. Patient reports NKA. Patient placed on Full Code, Regular Diet, Fall and Seizures Precautions. Patients denies Seizures Hx r/t withdrawal from substances. Patient presented with anxiety, when awake. She slept most of the day and is sleeping now. Patient denies SI/HI at this moment, confirms SI in the past. Patient denies SOB and chest pain , speech is soft and slowly. Pt remains partially compliant with the treatment plan. V/S remain WNL. RR=16, even and unlabored, lungs clear upon auscultation, abdomen soft and non- distended. Pt denies nausea, vomiting and diarrhea. Pt had a COWS and CIWA of 13 and 13 at 1815 when medications were given. Safety measures in place : bed on lowest position with side rails x2 up for safety, call light within reach. Will continue to monitor closely and offer help.
[2016-12-20] MEDS: QUETIAPINE FUMARATE 200 MG TABLET PO SCH (21:43)
--- NOTE | 2016-12-21 06:47 | NUR ---
END OF SHIFT NOTE : Pt. is a 21 year old female admitted to [facility] at 20:50 on 12/19/2016. Patient reports NKA. Patient placed on Full Code, Regular Diet, Fall and Seizures Precautions. Patients denies Seizures Hx r/t withdrawal from substances. Patient presented with anxiety, when awake. She slept most of the day and is sleeping now. Patient denies SI/HI at this moment, confirms SI in the past. Patient denies SOB and chest pain , speech is soft and slowly. Pt remains compliant with the treatment plan. No PRNs were given during my shift. V/S remain WNL. RR=16, even and unlabored, lungs clear upon auscultation, abdomen soft and non- distended. Pt denies nausea, vomiting and diarrhea. LAST CIWA= 3 ,COWS=4 at 0400 , EONBLZ=393 ml, voided x1 , slept 8 hours. Safety measures in place : bed on lowest position with side rails x2 up for safety, call light within reach. Will continue to monitor closely and offer help.
--- NOTE | 2016-12-21 07:50 | NUR ---
START OF SHIFT NOTE Received report from night nurse, 21 year old female admitted for Opiate and Benzo dependence. Pt has a PMH of HTN, anxiety and depression. NKA, full code and on a regular diet. Pt denies any history of seizures. Per endorsement pt did not receive any PRN, last COWS-4, CIWA-3, slept for 8 hours. Received pt asleep in bed responsive to verbal and tactile stimuli. Breathing normal no SOB noted. Skin intact warm and dry to touch. All safety measures in place, Call light within reach. Will cont to monitor.
[2016-12-21 08:00] VITALS: BP 98/68
[2016-12-21] MEDS ORDERED: TUBERCULIN,PURIF.PROT.DERIV. 5 TU/0.1 ML TEST ID ONE (09:00)
[2016-12-21] MEDS ORDERED: BUPRENORPHINE HCL 2 MG TAB.SUBL SL SCH (09:00)
[2016-12-21] MEDS: GABAPENTIN 300 MG CAPSULE PO SCH ×3 (09:27→21:24)
[2016-12-21] MEDS: MULTIVITAMINS,THERAPEUTIC TABLET PO SCH (09:27)
[2016-12-21] MEDS: DIAZEPAM 5 MG TABLET PO SCH ×4 (09:27→21:24)
[2016-12-21 10:10] LABS: HEPATITIS B SURFACE AG Negative (Negative)
[2016-12-21 12:00] VITALS: BP 98/64
[2016-12-21] MEDS: BUPRENORPHINE HCL 2 MG TAB.SUBL SL SCH ×2 (14:33→21:24)
[2016-12-21 16:00] VITALS: BP 96/62
--- NOTE | 2016-12-21 19:09 | NUR ---
END OF SHIFT NOTE Pt started on 5 days Subutex/ 5days Valium taper tolerating well. Pt rested in bed most of shift and did not attend any groups or activities. Encourage pt to attend group and activities t learn new coping skills. Vital signs WNL. Pt remained compliant with treatment. Encouraged PO fluids as tolerated. All needs met. Safety measures in place, Call light within reach. Pt endorsed to night nurse in stable condition.
--- NOTE | 2016-12-21 19:15 | NUR ---
START OF SHIFT NOTE : Pt. is a 21 year old female admitted to [facility] at 20:50 on 12/19/2016. Patient reports NKA. Patient placed on Full Code, Regular Diet, Fall and Seizures Precautions. Patients denies Seizures Hx r/t withdrawal from substances. Patient presented with anxiety, when awake. Patient denies SI/HI at this moment, confirms SI in the past. Patient denies SOB and chest pain , speech is soft and slowly. Pt remains compliant with the treatment plan. V/S remain WNL. RR=16, even and unlabored, lungs clear upon auscultation, abdomen soft and non- distended. Pt denies nausea, vomiting and diarrhea. Safety measures in place : bed on lowest position with side rails x2 up for safety, call light within reach. Will continue to monitor closely and offer help.
[2016-12-21 20:00] VITALS: BP 119/50
[2016-12-21] MEDS: QUETIAPINE FUMARATE 200 MG TABLET PO SCH (21:24)
--- NOTE | 2016-12-22 06:55 | NUR ---
END OF SHIFT NOTE : Pt. is a 21 year old female admitted to [facility] at 20:50 on 12/19/2016. Patient reports NKA. Patient placed on Full Code, Regular Diet, Fall and Seizures Precautions. Patients denies Seizures Hx r/t withdrawal from substances. Patient presented with anxiety, when awake. Patient denies SI/HI at this moment, confirms SI in the past. Pt remains compliant with the treatment plan. No PRNs were given during my shift. V/S remain WNL. RR=16, even and unlabored, lungs clear upon auscultation, abdomen soft and non- distended. Pt denies nausea, vomiting and diarrhea. LAST CIWA=3 ,COWS=5 at 0400 , OJINQQ=666 ml, voided x1 , slept 9 hours. Safety measures in place : bed on lowest position with side rails x2 up for safety, call light within reach. Will continue to monitor closely and offer help.
[2016-12-22 08:00] VITALS: BP 95/66
--- NOTE | 2016-12-22 08:08 | NUR ---
START OF SHIFT NOTE Received report from night nurse, 21 year old female admitted for Opiate and Benzo dependence. Pt has a PMH of HTN, anxiety and depression. NKA, full code and on a regular diet. Pt denies any history of seizures. Per endorsement pt did not receive any PRN, last COWS-5, CIWA-3, slept for 9 hours. Received pt asleep in bed responsive to verbal and tactile stimuli. Breathing normal no SOB noted. Skin intact warm and dry to touch. All safety measures in place, Call light within reach. Will cont to monitor.
[2016-12-22] MEDS: GABAPENTIN 300 MG CAPSULE PO SCH ×3 (09:21→20:49)
[2016-12-22] MEDS: MULTIVITAMINS,THERAPEUTIC TABLET PO SCH (09:21)
[2016-12-22] MEDS: BUPRENORPHINE HCL 2 MG TAB.SUBL SL SCH ×3 (09:21→20:49)
[2016-12-22] MEDS: DIAZEPAM 5 MG TABLET PO SCH ×3 (09:21→20:49)
[2016-12-22 12:00] VITALS: BP 98/63
[2016-12-22 16:00] VITALS: BP 102/60
--- NOTE | 2016-12-22 19:13 | NUR ---
END OF SHIFT NOTE Pt cont on 5 days Subutex/ Valium taper tolerating well. Pt rested in bed most of shift and did not attend any groups or activities. Encourage pt to attend group and activities t learn new coping skills. Vital signs WNL. Last CIWA-4, COWS-5. Pt remained compliant with treatment. Encouraged PO fluids as tolerated. All needs met. Safety measures in place, Call light within reach. Pt endorsed to night nurse in stable condition.
[2016-12-22 20:00] VITALS: BP 115/68
--- NOTE | 2016-12-22 20:00 | NUR ---
START OF SHIFT NOTE RECEIVED REPORT FROM DAY SHIFT NURSE. PATIENT IS A 21 YEAR OLD FEMALE ADMITTED FOR HEROIN/METH AND XANAX DEPENDENCE. PATIENT IS ON 3RD DAY OF HER 4 DAY VALIUM AND 4 DAY SUBUTEX TAPER. NO SEIZURE HISTORY. SKIN INTACT. PATIENT GOES TO GROUPS. NO PRN MEDICATION GIVEN. COMPLIANT WITH MEDICATION . LAST COWS 5 AND CIWA 4. ON FALL PRECAUTION. SAFETY MEASURES IN PLACE. CALL LIGHT IN REACH. WILL CONTINUE TO MONITOR
[2016-12-22] MEDS: QUETIAPINE FUMARATE 200 MG TABLET PO SCH (20:49)
[2016-12-23] VITALS (7 sets, daily range): BP systolic 93–121; BP diastolic 52–69
--- NOTE | 2016-12-23 07:16 | NUR ---
END OF SHIFT NOTE PATIENT CONTINUE VALIUM AND SUBUTEX TAPER, TOLERATED WELL AND NO ADVERSE REACTION NOTED. PATIENT COMPLIANT WITH MEDICATION AND TREATMENT PLAN. PATIENT ATTEND TO GROUPS. NO PRN MEDICATION GIVEN. LAST COWS 5 AND CIWA 4. PATIENT SLEPT 8 HOURS. FLUID INTAKE OF 946 ML. VOIDED X 2. NO BM. ON FALL PRECAUTION. SAFETY MEASURES IN PLACE. CALL LIGHT IN REACH. WILL CONTINUE TO MONITOR. LAST COWS 3 AND CIWA 1.
--- NOTE | 2016-12-23 07:46 | NUR ---
START OF SHIFT NOTE Received report from night nurse, 21 year old female admitted for Opiate and Benzo dependence. Pt has a PMH of HTN, anxiety and depression. NKA, full code and on a regular diet. Pt denies any history of seizures. Per endorsement pt did not receive any PRN, last COWS-3, CIWA-1, slept for 8 hours. Received pt asleep in bed responsive to verbal and tactile stimuli. Breathing normal no SOB noted. Skin intact warm and dry to touch. All safety measures in place, Call light within reach. Will cont to monitor.
[2016-12-23] MEDS: MULTIVITAMINS,THERAPEUTIC TABLET PO SCH (08:02)
[2016-12-23] MEDS: GABAPENTIN 300 MG CAPSULE PO SCH ×3 (08:02→21:29)
--- NOTE | 2016-12-23 08:50 | NUR ---
MD communication Pt noted with HR of 132 at 0800, Dr Cody notified, stated to give pt AM meds and recheck vitals. VS rechecked, noted to have BP 121/[address] Cody ordered EKG. Orders entered, unable to enter orders.
[2016-12-23] MEDS ORDERED: DIAZEPAM 5 MG TABLET PO SCH (09:00)
[2016-12-23] MEDS ORDERED: BUPRENORPHINE HCL 2 MG TAB.SUBL SL SCH (09:00)
--- NOTE | 2016-12-23 09:05 | NUR ---
MD communication Notified Dr Cody about EKG results, NNO at this time. MD to assess pt during rounds. Pt has no complaints at this time. Pt is stable. Primary nurse to continue to monitor pt.
[2016-12-23] MEDS ORDERED: PROPRANOLOL HCL 20 MG TABLET PO ONE (11:15)
[2016-12-23] MEDS ORDERED: DIAZEPAM 5 MG TABLET PO ONE (11:15)
--- NOTE | 2016-12-23 11:38 | NUR ---
NEW ORDER Pt was seen by Dr. Cody with new ordered to give x1 dose of Propranolol 20mg/ Valium 5mg. Administered medications as ordered. Will cont to monitor.
[2016-12-23] MEDS: BUPRENORPHINE HCL 2 MG TAB.SUBL SL SCH ×2 (14:52→22:26)
[2016-12-23] MEDS: DIAZEPAM 5 MG TABLET PO SCH ×2 (14:52→21:28)
--- NOTE | 2016-12-23 15:00 | NUR ---
MEDICATION HELD 1500 medication held d/t sedation. notified.
[2016-12-23 17:33] LABS: CREATININE 0.8 mg/dL (0.6-1.3); MAGNESIUM 1.8 mg/dL (1.8-2.4); POTASSIUM 3.8 mmol/L (3.5-5.1)
--- NOTE | 2016-12-23 19:00 | NUR ---
RECEIVED IN BED SLEEPING WITHOUT DISTRESS. VSS, CALL LIGHT WITHIN REACH. WILL CONTINUE TO MONITOR FOR COMFORT AND SAFETY.
--- NOTE | 2016-12-23 19:19 | NUR ---
END OF SHIFT NOTE Pt cont on 5 days Subutex/ Valium taper tolerating well. Pt rested in bed most of shift and did not attend any groups or activities. Encourage pt to attend group and activities to learn new coping skills. Vital signs WNL. Last CIWA-4, COWS-4. Pt received x1 dose of Propranolol/Valium for increased heart rate 140, effective HR noted 100. 1500 medications was held d/t. Labs were/ Duplex venous lower extremities done. MD notified with no new order at this time. Pt remained compliant with treatment. Encouraged PO fluids as tolerated. All needs met. Safety measures in place, Call light within reach. Pt endorsed to night nurse in stable condition.
[2016-12-23] MEDS: QUETIAPINE FUMARATE 200 MG TABLET PO SCH (21:00)
[2016-12-23] MEDS ORDERED: QUETIAPINE FUMARATE 100 MG TABLET PO ONE (21:30)
[2016-12-23] MEDS ORDERED: QUETIAPINE FUMARATE 100 MG TABLET ONE (21:39)
--- NOTE | 2016-12-23 23:21 | NUR ---
START OF SHIFT RECEIVED IN [address] A/OX4. PLAN OF CARE DISCUSSED, PT UNDERSTOOD. DENIES ANY PAIN AT THIS TIME CIWA:9. C/O CONSTIPATION, A DOSE OF MIRALAX GIVEN ORDERED. WILL CONTINUE TO MONITOR FOR COMFORT AND SAFETY.
[2016-12-24] VITALS: BP 114/66
[2016-12-24 04:00] VITALS: BP 98/54
--- NOTE | 2016-12-24 05:54 | NUR ---
END OF SHIFT NOTE : Pt. is a 21 year old female admitted to [facility] . NKA. Full Code, Regular Diet, Fall and Seizures Precautions. Patients denies Seizures Hx r/t withdrawal from substances. Patient presented with anxiety, when awake. slept well. Patient denies SI/HI at this moment, confirms SI in the past. Patient denies SOB and chest pain, speech is soft and slowly. Pt remains compliant with the treatment plan. No PRNs were given during my shift. V/S remain WNL. RR=16, even and unlabored, lungs clear upon auscultation, abdomen soft and non- distended. Pt denies nausea, vomiting and diarrhea. LAST CIWA= 3 ,COWS=4 at 0400 , INTAKE= 1100ml,voided x2 , slept 8 hours. Safety measures in place : bed on lowest position with side rails x2 up. Continue to monitor for comfort and safety. Addendum: 12/24/16 at 0700 by ALANA ROMERO RN BP 100/53 SUBUTEX HELD, BP RECHECK UP TO 116/64 SUBUTEX GIVEN ORDERED, WILL CONTINUE TO MONITOR FOR SAFETY AND COMFORT.
--- NOTE | 2016-12-24 07:30 | NUR ---
Start of shift note; Received report from night nurse. Patient is a 21 year old female admitted on 12/19/16 for Opiate/Benzodiazepine withdrawals. Patient was placed on customized Valium and Subutex taper, no adverse reactions noted. Patient is on full code status, Regular diet, NKA. Patient reported history of anxiety, depression and hypertension. Patient's had an uneventful night. All safety measures secured. Will continue to monitor patient.
[2016-12-24 08:00] VITALS: BP 108/67
[2016-12-24] MEDS ORDERED: DIAZEPAM 5 MG TABLET PO SCH (09:00)
[2016-12-24] MEDS ORDERED: BUPRENORPHINE HCL 2 MG TAB.SUBL SL SCH (09:00)
[2016-12-24] MEDS: GABAPENTIN 300 MG CAPSULE PO SCH ×3 (09:14→20:30)
[2016-12-24] MEDS: MULTIVITAMINS,THERAPEUTIC TABLET PO SCH (09:14)
[2016-12-24 12:00] VITALS: BP 96/68
[2016-12-24] MEDS ORDERED: HYDR-3895 PO (14:14)
[2016-12-24] MEDS ORDERED: DIPH50CA37 PO (14:14)
[2016-12-24] MEDS ORDERED: DICY20TA28 PO (14:14)
[2016-12-24] MEDS ORDERED: METH-406 PO (14:14)
[2016-12-24] MEDS ORDERED: IBUP-1955 PO (14:14)
[2016-12-24] MEDS: HYDROXYZINE PAMOATE 25 MG CAPSULE PO PRN (14:19)
--- NOTE | 2016-12-24 14:19 | NUR ---
PRN medication; Patient appears anxious, pacing back and forth in the room. Non-pharmaceutical relaxation techniques ineffective. PRN Vistaril 25 mg PO given for anxiety. Will continue to monitor patient for effectiveness of medication.
--- NOTE | 2016-12-24 15:19 | NUR ---
Re-assessment; Patient appears calm and comfortable, no anxiety noted. PRN medication is effective.
[2016-12-24 16:00] VITALS: BP 120/68
--- NOTE | 2016-12-24 18:56 | NUR ---
End of shift note; Patient is AOX4. Patient is a 21 year old female admitted on 12/19/16 for Opiate/Benzodiazepine withdrawals. Patient was placed on customized Valium and Subutex taper, no adverse reactions noted. Patient is on full code status, Regular diet, NKA. Patient reported history of anxiety, depression and hypertension. Patient remained compliant with treatment plan. Medications were effective in reducing withdrawal symptoms. Patient is medically cleared for discharge tomorrow. Met all needs. Safety measures secured.
--- NOTE | 2016-12-24 19:35 | NUR ---
START OF SHIFT NOTE Pt. is a 21 year old female admitted 12/19/2016 for opiate, met, and benzo dependence. Patient completed a five day valium and subutex taper. Last COWS 4 Last CIWA 4. Patient reports NKA. Patient placed on Full Code, Regular Diet, Fall and Seizures Precautions. Patient denies SI/HI mood appears stable, active and attending unit groups. Pt currently compliant with the treatment plan. V/S remain WNL. Pt denies nausea, vomiting and diarrhea. Tolerating diet and Fluids. Will continue to monitor.
[2016-12-24 20:00] VITALS: BP 132/79
[2016-12-24] MEDS: QUETIAPINE FUMARATE 200 MG TABLET PO SCH (20:31)
[2016-12-24 22:02] LABS: *AMPHETAMINE, URINE NEGATIVE (NEGATIVE); *BARBITURATE, URINE NEGATIVE (NEGATIVE); *CANNABINOID, URINE NEGATIVE (NEGATIVE); *COCCAINE, URINE NEGATIVE (NEGATIVE); *OPIATE, URINE NEGATIVE (NEGATIVE); *PHENCYCLIDINE SCREEN,URINE NEGATIVE (NEGATIVE)
[2016-12-25] VITALS: BP 96/48
[2016-12-25 04:00] VITALS: BP 94/46
--- NOTE | 2016-12-25 06:44 | NUR ---
End of shift note Patient is a 21 year old female admitted on 12-19-16 for Opiate and benzodiazepine dependency. She was currently using Xanax, heroin, and methamphetamine prior to admission. Patient has completed a Subutex and Valium taper. Patient VS at 2000:BP 132/79, P 122, R 16, SPO2 99% on RA T 97.8 COWS 6 CIWA 0. VS at 0000: 96/48, P 120, r 18, spo2 96% on RA. Vital signs at 0400 BP 94/46, P 108, R 20, SPO2 96% on RA Cows 2, CIWA 2. Patient with no physical complaints or pain. Lungs CTA, Breathing even and unlabored. Patient denies dizziness, SOB, or falls. MD aware of patients elevated HR. EKG was performed prior to this shift. Patient tolerating diet and fluids. Intake 2092 ml output: 3 voids, 0 BM. Slept total of 7 hours. No PRN medications given. Safety measures in place. Patients needs have been met. Endorsement to AM nurse.
--- NOTE | 2016-12-25 07:47 | NUR ---
START OF SHIFT Pt 21 y/o female admitted for heroin/ methamphetamine/ xanax dependence. Pt received in room on bed watching television. Pt alert and oriented to name, place, and time. Perrla. Skin warm and dry to touch. Respirations even and unlabored. It was reported that pt slept for 7 hours last night. Pt is scheduled to be discharged today. Bed on lowest position with side rails x2 up for safety. Call light within reach. No distress noted at this time.
[2016-12-25] MEDS: GABAPENTIN 300 MG CAPSULE PO SCH (08:20)
[2016-12-25] MEDS: MULTIVITAMINS,THERAPEUTIC TABLET PO SCH (08:20)
--- NOTE | 2016-12-25 10:00 | NUR ---
DISCHARGE Pt 21 y/o female admitted for heroin/ methamphetamine/ xanax dpendence. Pt alert and oriented to name, place, and time. Perrla. Skin warm and dry to touch. Respirations even and unlabored. No hand tremors noted. Pt discharged to [facility] via private transport. All prescriptions, discharge papers, and belongings in cabinet packed in bag. No home medications noted and verified with pt. No belongings noted in cassette noted. No distress noted.
== END 2016-12-25 09:48 | disposition other institution (70) | DRG 895 ==
LOC: SRC 18:38
PROVIDERS: ADMIT Internal Medicine; ATTEND Internal Medicine
PROC: HZ2ZZZZ Detoxification Services for Substance Abuse Treatment (ICD-10-PCS; principal; 2016-12-19)
PROC: HZ31ZZZ Individual Counseling for Substance Abuse Treatment, Behavioral (ICD-10-PCS; 2016-12-19)
DX: F11.23 Opioid dependence with withdrawal (principal); F32.9 Major depressive disorder, single episode, unspecified; F15.23 Other stimulant dependence with withdrawal; F13.220 Sedative, hypnotic or anxiolytic dependence with intoxication, uncomplicated; E86.0 Dehydration; F41.9 Anxiety disorder, unspecified; Z81.1 Family history of alcohol abuse and dependence; Z81.8 Family history of other mental and behavioral disorders; Z82.49 Family history of ischemic heart disease and other diseases of the circulatory system; G47.00 Insomnia, unspecified; F17.210 Nicotine dependence, cigarettes, uncomplicated; Z65.3 Problems related to other legal circumstances
CPT/HCPCS: 36415; 80307; 80324; 80361; 83735; 84703; 85025; 86580; 86592; 86705; 86803; 87340; 87806; 93005; G0480; Q0163